=== PATIENT | female | born 1990 | race Caucasian/White ===

== ENCOUNTER 2016-11-13 14:09 | Emergency (ER) | payer BC ==
[~2016-11-13] VITALS: Ht 157.4 cm; Wt 113.4 kg
[~2016-11-13 14:09] MED LIST: AMOXICILLIN500 MG PO; AVPAK AZITHROM250 M1 PO; BACTRIM DS 8001 TA1 PO; BUSPIRONE HCL7.5 MG PO; CIPRO500 MG PO; CLINDAMYCIN HC300 MG PO; COLACE100 MG PO; DIFLUCAN150 MG PO; IBU-TAB800 MG PO; IRON325 M1 PO; MACROBID100 M1 PO; MEDROL DOSEPAK4 MG PO; MOTRIN600 MG PO; MOTRIN800 MG PO; MYCELEX VG; NKHM; PERCOCET 325 MG1 TA2 PO; PERCOCET 325 MG1 TA5 PO; PRENATAL1 TA1 PO; PROTONIX40 MG PO; ROBITUSSIN AC 110 ML PO; TRAMADOL HCL50 MG PO; ZANTAC 150150 MG PO; ZANTAC150 MG PO; ZOFRAN4 MG PO; ZOLOFT50 MG PO; ZYRTEC10 M3 PO
[2016-11-13 15:11] VITALS: BP 108/86
[2016-11-13 15:43] LABS: BASO % 0.4 % (0.0-1.0); EOS # 0.1 10*3/uL (0.0-0.4); EOS % 1.4 % (1.0-4.0); HEMATOCRIT 45.2 % (37.0-47.0); HEMOGLOBIN 15.1 g/dl (12.0-16.0); LYMPH # 1.9 10*3/uL (1.3-4.4); LYMPH % 23.9 % (27.0-41.0); MEAN CELL VOLUME 87.8 fl (81.0-99.0); MEAN CORPUSCULAR HGB 29.3 pg (27.0-31.0); MEAN CORPUSCULAR HGB CONC 33.4 g/dl (33.0-37.0); MEAN PLATELET VOLUME 11.8 fl (9.6-12.3); MONO # 0.9 10*3/uL (0.1-1.0); MONO % 10.9 % (3.0-9.0); NEUT # 4.9 10*3/uL (2.3-7.9); PLATELET COUNT AUTOMATED 199 10*3/uL (130-400); RED BLOOD COUNT 5.15 10*6/uL (4.10-5.10); RED CELL DISTRI WIDTH 12.9 % (0-14.5); WHITE BLOOD COUNT 7.8 10*3/uL (4.8-10.8)
[2016-11-13 15:59] LABS: ALBUMIN 3.9 gm/dl (3.1-4.5); ALKALINE PHOSPHATASE 89 U/L (45-117); BILIRUBIN, TOTAL 0.3 mg/dl (0.2-1.0); BUN 11 mg/dl (7-24); CARBON DIOXIDE 24 mmol/L (21-32); CHLORIDE 105 mmol/L (98-107); EST GLOM FILT AFRICAN AMERICAN > 60 ml/min; GLUCOSE 105 mg/dL (65-99); POTASSIUM 3.8 mmol/L (3.5-5.1); SGOT/AST 37 IU/L (3-35); SGPT/ALT 54 U/L (12-78); SODIUM 140 mmol/L (136-145); TOTAL PROTEIN 8.2 gm/dL (6.4-8.2)
[2016-11-13] MEDS ORDERED: PREDNISONE20 M1 PO (16:37)
[2016-11-13] MEDS ORDERED: ZITHROMAX250 MG PO (16:37)
== END 2016-11-13 19:05 | disposition home or self-care (01) ==
LOC: ED 14:09
PROVIDERS: Nurse Practitioner Family
DX: J20.9 Acute bronchitis, unspecified (principal); F17.200 Nicotine dependence, unspecified, uncomplicated; Z88.0 Allergy status to penicillin; Z79.899 Other long term (current) drug therapy

== ENCOUNTER → 2017-03-28 | Outpatient (CLI) | payer BC ==
[~2017-03-28] MED LIST changes: +PREDNISONE20 M1 PO; +ZITHROMAX250 MG PO
[2017-03-28 16:35] LABS: HEMATOCRIT 42.6 % (37.0-47.0); HEMOGLOBIN 14.2 g/dl (12.0-16.0); MEAN CELL VOLUME 88.2 fl (81.0-99.0); MEAN CORPUSCULAR HGB 29.4 pg (27.0-31.0); MEAN CORPUSCULAR HGB CONC 33.3 g/dl (33.0-37.0); MEAN PLATELET VOLUME 11.9 fl (9.6-12.3); RED BLOOD COUNT 4.83 10*6/uL (4.10-5.10); WHITE BLOOD COUNT 12.8 10*3/uL (4.8-10.8)
[2017-03-28 16:52] LABS: ALBUMIN 3.5 gm/dl (3.1-4.5); ALKALINE PHOSPHATASE 95 U/L (45-117); BUN 10 mg/dl (7-24); CHLORIDE 103 mmol/L (98-107); CHOLESTEROL 144 mg/dL (<200); HDL CHOLESTEROL 36 mg/dl (40-60); LDL CHOLESTEROL 59 mg/dL (9-159); POTASSIUM 3.9 mmol/L (3.5-5.1); SGOT/AST 15 IU/L (3-35); SGPT/ALT 37 U/L (12-78); SODIUM 140 mmol/L (136-145); TOTAL PROTEIN 7.9 gm/dL (6.4-8.2); TRIGLYCERIDES 243 mg/dl (<150); VLDL CHOLESTEROL 49 mg/dL (6-40)
[2017-03-29 19:04] LABS: TESTOSTERONE FREE, (DIRECT) 1.9 pg/mL (0.0-4.2)
== END | disposition home or self-care (01) ==
LOC: LAB 16:00
PROVIDERS: Family Medicine
DX: E78.00 Pure hypercholesterolemia, unspecified (principal); F41.1 Generalized anxiety disorder; E74.00 Glycogen storage disease, unspecified; E55.9 Vitamin D deficiency, unspecified

== ENCOUNTER 2018-10-15 08:30 | Emergency (ER) | payer OTHER ==
[~2018-10-15] VITALS: Ht 157.4 cm; Wt 113.4 kg
[2018-10-15 08:33] VITALS: BP 126/81
[2018-10-15] MEDS ORDERED: ROBAXIN500 M1 PO (12:07)
[2018-10-15] MEDS ORDERED: PREDNISONE20 M1 PO (12:07)
== END 2018-10-15 12:16 | disposition home or self-care (01) ==
LOC: ED 08:30
DX: S30.0XXA Contusion of lower back and pelvis, initial encounter (principal); Z79.899 Other long term (current) drug therapy; Z88.0 Allergy status to penicillin; W10.8XXA Fall (on) (from) other stairs and steps, initial encounter; Y93.89 Activity, other specified; Y92.098 Other place in other non-institutional residence as the place of occurrence of the external cause; Y99.8 Other external cause status

== ENCOUNTER 2019-04-21 16:02 | Emergency (ER) | payer SELFPAY ==
[~2019-04-21] VITALS: Ht 157.4 cm; Wt 104.8 kg
[~2019-04-21 16:02] MED LIST changes: +ROBAXIN500 M1 PO
[2019-04-21 16:03] VITALS: BP 109/72
[2019-04-21 16:37] LABS: BILIRUBIN 1+ (NEGATIVE); BLOOD 3+ (NEGATIVE); CLARITY CLOUDY (CLEAR); COLOR YELLOW (YELLOW); GLUCOSE NEGATIVE (NEGATIVE); KETONE TRACE (NEGATIVE); LEUKO ESTERASE NEGATIVE (NEGATIVE); NITRITE NEGATIVE (NEGATIVE); PH 5.5 (5.0-9.0); SPECIFIC GRAVITY >= 1.030 (1.005-1.030); UROBILINOGEN 0.2 E.U./dl (0.2-1.0)
[2019-04-21 16:42] LABS: BASO # 0.1 10*3/uL (0.0-0.1); BASO % 0.5 % (0.0-1.0); EOS # 0.1 10*3/uL (0.0-0.4); HEMOGLOBIN 14.7 g/dl (12.0-16.0); LYMPH # 4.1 10*3/uL (1.3-4.4); LYMPH % 33.1 % (27.0-41.0); MEAN CORPUSCULAR HGB 30.1 pg (27.0-31.0); MEAN CORPUSCULAR HGB CONC 33.4 g/dl (33.0-37.0); MEAN PLATELET VOLUME 12.4 fl (9.6-12.3); MONO # 0.7 10*3/uL (0.1-1.0); MONO % 5.5 % (3.0-9.0); NEUT # 7.4 10*3/uL (2.3-7.9); NEUT % 59.5 % (47.0-73.0); PLATELET COUNT AUTOMATED 204 10*3/uL (130-400); RED BLOOD COUNT 4.89 10*6/uL (4.10-5.10); RED CELL DISTRI WIDTH 11.9 % (0-14.5); WHITE BLOOD COUNT 12.4 10*3/uL (4.8-10.8)
[2019-04-21 16:58] LABS: ALBUMIN 3.8 gm/dl (3.1-4.5); ALKALINE PHOSPHATASE 85 U/L (45-117); BUN 9 mg/dl (7-24); CHLORIDE 107 mmol/L (98-107); CREATININE 0.79 mg/dL (0.55-1.02); POTASSIUM 3.7 mmol/L (3.5-5.1); SGOT/AST 22 IU/L (3-35); SGPT/ALT 32 U/L (12-78); SODIUM 139 mmol/L (136-145)
[2019-04-21 17:00] LABS: RBC TNTC rbc/hpf (0-2)
[2019-04-21 17:02] LABS: B-hCG (QUALITATIVE) NEGATIVE (NEGATIVE)
== END 2019-04-21 17:32 | disposition home or self-care (01) ==
LOC: ED 16:02
PROVIDERS: Physician Assistant
DX: N93.8 Other specified abnormal uterine and vaginal bleeding (principal); K21.9 Gastro-esophageal reflux disease without esophagitis; Z88.0 Allergy status to penicillin; Z79.899 Other long term (current) drug therapy

== ENCOUNTER 2021-12-22 13:54 | Emergency (ER) | payer OTHER ==
[~2021-12-22] VITALS: Wt 114.8 kg
[2021-12-22 14:01] VITALS: BP 113/67
[2021-12-22] MEDS ORDERED: Motrin,Rufen800 MG PO (15:19)
== END 2021-12-22 15:33 | disposition home or self-care (01) ==
LOC: ED 13:54
DX: S96.912A Strain of unspecified muscle and tendon at ankle and foot level, left foot, initial encounter (principal); S46.912A Strain of unspecified muscle, fascia and tendon at shoulder and upper arm level, left arm, initial encounter; S66.911A Strain of unspecified muscle, fascia and tendon at wrist and hand level, right hand, initial encounter; Z88.0 Allergy status to penicillin; Z79.899 Other long term (current) drug therapy; Z98.890 Other specified postprocedural states; W19.XXXA Unspecified fall, initial encounter; Y93.89 Activity, other specified; Y92.89 Other specified places as the place of occurrence of the external cause; Y99.8 Other external cause status

== ENCOUNTER 2022-03-26 17:01 | Emergency (ER) | payer OTHER ==
[~2022-03-26] VITALS: Ht 157.4 cm; Wt 114.8 kg
[~2022-03-26 17:01] MED LIST changes: +Motrin,Rufen800 MG PO
[2022-03-26 17:15] VITALS: BP 97/79
[2022-03-26] MEDS ORDERED: HIBICLENS118 ML T (20:25)
== END 2022-03-26 21:15 | disposition home or self-care (01) ==
LOC: ED 17:01
DX: L73.2 Hidradenitis suppurativa (principal); Z88.0 Allergy status to penicillin; Z79.899 Other long term (current) drug therapy; Z98.890 Other specified postprocedural states

== ENCOUNTER → 2022-03-27 | Outpatient (CLI) | payer OTHER ==
[~2022-03-27] MED LIST changes: +HIBICLENS118 ML T
== END ==
LOC: LAB 15:05
PROVIDERS: ATTEND Nurse Practitioner Family
DX: L73.2 Hidradenitis suppurativa (principal)

== ENCOUNTER → 2022-03-27 | Outpatient (CLI) | payer OTHER | END | disposition home or self-care (01) | LOC: WOUNDCARE 08:45 | PROVIDERS: ATTEND Nurse Practitioner Family | DX: L73.2 Hidradenitis suppurativa (principal); F17.200 Nicotine dependence, unspecified, uncomplicated; Z71.6 Tobacco abuse counseling ==